=== PATIENT | female | born 1940 | race African-American/Black ===

== ENCOUNTER 2025-11-03 11:47 | Emergency (ER) | payer OTHER ==
[~2025-11-03] VITALS: Ht 160 cm; Wt 55.0 kg
[2025-11-03 11:53] VITALS: O2SAT 100
[2025-11-03 12:24] LABS: BASOPHILS % 0.3 % (0.0-2.0); EOSINOPHILS % 0.6 % (0.0-5.0); HEMATOCRIT. 34.3 % (36.0-48.0); HEMOGLOBIN. 11.4 g/dL (12.0-16.0); LYMPHOCYTES % 9.9 % (20.0-50.0); MEAN PLATELET VOLUME 7.7 fl (7.4-10.4); MONOCYTES % 5.3 % (2.0-8.0); NEUTROPHILS % 83.9 % (40.0-76.0); PLATELET 280 x1000/uL (130-400); RED BLOOD CELL COUNT 3.61 mill/uL (4.2-5.4); RED CELL DISTRIBUTION WIDTH 13.1 % (11.6-14.6)
[2025-11-03 13:01] LABS: CREATININE 1.3 mg/dL (0.6-1.0); UREA NITROGEN BLOOD 27.0 mg/dL (9-23)
[2025-11-03 13:19] LABS: TROPONIN I HIGH SENSITIVITY 6 ng/L (3.0-34)
[2025-11-03 13:22] LABS: PROTEIN TOTAL 7.8 g/dL (6.0-8.3)
[2025-11-03 13:24] LABS: ASPARTATE AMINOTRANSFERASE 24 IU/L (<34); BILIRUBIN DIRECT < 0.1 mg/dL (<=3.0); BILIRUBIN TOTAL 0.3 mg/dL (0.1-1.0)
[2025-11-03 15:11] LABS: TROPONIN I HIGH SENSITIVITY 5 ng/L (3.0-34)
[2025-11-03 16:05] VITALS: BP 133/79; PULSE 89; RESP 16; TEMP 36.6; O2SAT 99
== END 2025-11-03 16:20 | disposition home or self-care (01) ==
LOC: ER 11:47 → CANBEDREQ 16:10 → ER 16:20
DX: R55 Syncope and collapse (principal); R53.1 Weakness; R06.02 Shortness of breath; E11.9 Type 2 diabetes mellitus without complications
CPT/HCPCS: 36415; 71045; 80048; 80076; 83880; 84484; 85025; 93005; 99285